=== PATIENT | female | born 1955 | race Two or more races ===

== ENCOUNTER 2018-01-17 09:16 | Inpatient (IN) | payer OTHER ==
[~2018-01-17] VITALS: Ht 142.2 cm; Wt 56.9 kg
[2018-01-17 10:05] LABS: BASOPHIL % 0.9 % (0-2); PLATELET COUNT 228 x10^3mcL (130-400); RED CELL DISTRIBUTION WIDTH 13.7 % (11.5-14.5)
[2018-01-17 10:13] LABS: CALCIUM 9.3 mg/dL (8.5-10.1); CARBON DIOXIDE 29.5 mmol/L (21-32); CHLORIDE SERUM 104 mmol/L (98-107); CREATININE SERUM 0.8 mg/dL (0.6-1.0); GFR1 > 60 mL/min; GLUCOSE SERUM 94 mg/dL (74-106); POTASSIUM SERUM 4.1 mmol/L (3.5-5.1); SODIUM SERUM 139 mmol/L (136-145)
[2018-01-17 10:20] LABS: ALBUMIN 3.8 g/dL (3.4-5.0); ALKALINE PHOSPHATASE 83 U/L (46-116); ALT/SGPT 46 U/L (14-59); AST/SGOT 28 U/L (15-37); BILIRUBIN TOTAL 0.43 mg/dL (0.20-1.00); TOTAL PROTEIN, SERUM 7.9 g/dL (6.4-8.2)
[2018-01-17] MEDS ORDERED: ZESTRIL5 MG PO (12:10)
[2018-01-17] MEDS ORDERED: NEU300 PO (12:11)
[2018-01-17] MEDS ORDERED: GLUCOPHAGE XR500 MG PO (12:11)
[2018-01-17 14:06] LABS: microscopic required? NO
[2018-01-17 14:14] LABS: UA SPECIFIC GRAVITY <=1.005 (1.005-1.035); urine erythrocyte NEGATIVE (NEGATIVE)
[2018-01-17 18:08] VITALS: BP 126/57
[2018-01-17 20:47] VITALS: BP 115/56
[2018-01-17 21:10] VITALS: BP 144/81
[2018-01-18 04:50] VITALS: BP 107/54; BP 142/71
[2018-01-18 06:32] LABS: BASOPHIL % 1.1 % (0-2); PLATELET COUNT 237 x10^3mcL (130-400); RED CELL DISTRIBUTION WIDTH 13.4 % (11.5-14.5)
[2018-01-18 06:42] LABS: ALBUMIN 3.7 g/dL (3.4-5.0); ALKALINE PHOSPHATASE 81 U/L (46-116); ALT/SGPT 61 U/L (14-59); AST/SGOT 27 U/L (15-37); BILIRUBIN TOTAL 0.7 mg/dL (0.20-1.00); CALCIUM 9.2 mg/dL (8.5-10.1); CARBON DIOXIDE 26.5 mmol/L (21-32); CHLORIDE SERUM 101 mmol/L (98-107); CREATININE SERUM 0.7 mg/dL (0.6-1.0); GFR1 > 60 mL/min; GLUCOSE SERUM 85 mg/dL (74-106); POTASSIUM SERUM 4.1 mmol/L (3.5-5.1); SODIUM SERUM 138 mmol/L (136-145); TOTAL PROTEIN, SERUM 7.7 g/dL (6.4-8.2)
[2018-01-18 09:05] VITALS: BP 119/62
[2018-01-18 10:44] VITALS: BP 119/62
== END 2018-01-18 11:18 | disposition home or self-care (01) | DRG 203 ==
LOC: ED 09:16 → DU 17:01
PROVIDERS: Emergency Medicine; Internal Medicine Pulmonary Disease
DX: R07.89 Other chest pain (principal); E11.9 Type 2 diabetes mellitus without complications; I10 Essential (primary) hypertension; H54.8 Legal blindness, as defined in USA; E78.00 Pure hypercholesterolemia, unspecified; E78.5 Hyperlipidemia, unspecified; E66.9 Obesity, unspecified; Z82.49 Family history of ischemic heart disease and other diseases of the circulatory system
CPT/HCPCS: 83880; J1644; Q0092

== ENCOUNTER 2019-08-08 06:58 | Day surgery (SDC) | payer OTHER ==
[~2019-08-08] VITALS: Ht 167.6 cm; Wt 58.5 kg
[~2019-08-08 06:58] MED LIST: GLUCOPHAGE XR500 MG PO; NEU300 PO; ZESTRIL5 MG PO
[2019-08-08 07:26] VITALS: BP 130/77
[2019-08-08 11:15] VITALS: BP 123/70
== END 2019-08-08 10:50 | disposition home or self-care (01) ==
LOC: DS 06:58 → GI 08:00 → OR 08:00 → DS 10:50
DX: K59.00 Constipation, unspecified (principal); K63.5 Polyp of colon; K63.89 Other specified diseases of intestine; K57.30 Diverticulosis of large intestine without perforation or abscess without bleeding; E11.9 Type 2 diabetes mellitus without complications; I10 Essential (primary) hypertension; E78.00 Pure hypercholesterolemia, unspecified; Z98.890 Other specified postprocedural states; Z79.899 Other long term (current) drug therapy; Z79.84 Long term (current) use of oral hypoglycemic drugs; Z96.653 Presence of artificial knee joint, bilateral
CPT/HCPCS: 45378; J1200; J1610; J2250; J2310; J3010; J3490